=== PATIENT | female | born 1990 | race Caucasian/White ===

== ENCOUNTER 2020-05-29 20:10 | Emergency (ER) | payer OTHER, SELFPAY ==
[2020-05-29 20:16] VITALS: BP 128/81; PULSE 88; RESP 16; TEMP 36.1; O2SAT 99; BMI 29.0
--- NOTE | 2020-05-29 21:26 | ED.FEMALEGU ---
HPI - Female Genitourinary General Chief complaint: Abdominal Pain Stated complaint: pelvic pain Time Seen by Provider: 05/29/20 21:02 Source: patient Mode of arrival: ambulatory Limitations: no limitations History of Present Illness HPI Narrative: This is a 29-year-old female who reports 20 days of lower pelvic discomfort that is not associated with fevers, chills, nausea, vomiting, diarrhea/constipation, or urinary pain/burning/frequency and she denies any alleviating or exacerbating symptoms. She states that she called [facility] this afternoon and was told to go to the emergency room to get an ultrasound . When asked about her LMP patient states that she has not had a period in 88 days and that this was further worked up between her primary care provider and global sales manager, whom she states the latter had no further recommendations or anything to say when the attempt at what sounds like a test for withdrawal bleeding was conducted. Related Data Allergies Allergy/AdvReac Type Severity Reaction Status Date / Time No Known Allergies Allergy Verified 05/29/20 21:10 [No Known Allergies*] Review of Systems Review of Systems: Pertinent positives and negatives as stated in HPI 10 point review of systems is otherwise negative. PMFSH Past Medical History Source: nursing notes reviewed Medical History No known health problems Social History Social History Smoking Status: Never smoker Use of substances other than those prescribed or required for medical reasons: No Advance Directives: No Advance Directives Information Provided: Yes Physical Exam Vital Signs: Vital Signs: Last Vital Signs Temp 99.0 F 05/29/20 21:51 Pulse 75 05/29/20 21:51 Resp 16 05/29/20 21:51 BP 119/75 05/29/20 21:51 Pulse Ox 97 05/29/20 21:51 Body Mass Index 29.0 VITAL SIGNS: Reviewed. GENERAL: Well developed, well nourished, in no acute distress, patient appears comfortable. HEAD: Normocephalic/atraumatic, EYES: PERRLA, EOMI intact without pain, no nystagmus/pallor/icterus noted EARS: Ext canals without abnormality, TMs non-bulging and non-erythematous NOSE: Nares patent bilateral OROPHARYNX: no oral lesions noted, posterior pharynx clear and non-erythematous without noted tonsillar enlargement/erythema/exudates NECK: Supple, no adenopathy LUNGS: Normal breath sounds. No adventitious sounds or accessory muscle use. SpO2<99> CARDIOVASCULAR: Regular rate and rhythm without noted murmurs, no JVD or lower extremity edema. ABDOMEN: Soft, non-tender, non-distended with bowel sounds. No rigidity. No guarding. No palpable masses or hernias noted MUSCULOSKELETAL: No tenderness, deformities, or effusions noted on gross inspection. EXTREMITIES: No cyanosis, clubbing or edema. SKIN: Inspection of the skin reveals no rashes, ulcerations, jaundice, pallor, or petechiae. NEUROLOGIC: Alert and oriented x 4. Strength and sensation to light touch were grossly intact x 4. Course Course Course Narrative: This is a 29-year-old female with history and clinical presentation most suggestive of a chronic condition, however will rule out UTI, renal colic, ovarian torsion (although this is unlikely for 20 days), no evidence to support possible STI. On review of all investigations urinary findings in urine test is negative. The pelvic ultrasound was suggestive of PCOS but no evidence of ovarian torsion. All results and findings were discussed with patient at bedside and she was instructed to follow-up with her primary care provider. MDM - Female Genitourinary Lab Data Result diagrams: 05/29/20 21:49 05/29/20 21:49 Labs: Lab Results 05/29/20 05/29/20 05/29/20 Range/Units 21:18 21:49 21:49 WBC 10.6 (4.8-10.8) X10*3/uL RBC 4.42 (4.20-5.50) X10*6/uL Hgb 12.8 (12.0-16.0) g/dl Hct 38.5 (37-47) % MCV 87.1 (80-98) fL MCH 29.0 (27.0-33.0) pg MCHC 33.2 (31.0-35.0) g/dl RDW 13.0 (11.0-16.0) % Plt Count 368 (160-400) X10*3/uL MPV 9.7 (9.4-12.3) fL Immature Gran % (Auto) 0.4 (0.0-0.4) % Neut % (Auto) 62.3 (45-73) % Lymph % (Auto) 28.3 (20-40) % Metcalfe % (Auto) 6.9 (2-11) % Eos % (Auto) 1.6 (0-4) % Baso % (Auto) 0.5 (0-2) % Lymph # (Auto) 3.0 (1.2-4.9) X10*3/uL Metcalfe # (Auto) 0.7 (0.1-1.2) X10*3/uL Eos # (Auto) 0.2 (0.0-0.4) X10*3/uL Baso # (Auto) 0.1 (0.0-0.2) X10*3/uL Abs Immat Gran (auto) 0.04 H (0.00-0.03) X10*3/uL Absolute Neuts (auto) 6.6 (2.0-8.3) X10*3/uL Absolute Nucleated RBC 0.000 (0.0-0.012) X10*3/uL Nucleated RBC % (auto) 0.0 (0.0-0.2) /100WBC Sodium 139 (135-145) mmol/L Potassium 4.0 (3.3-5.1) mmol/l Chloride 101 (96-108) mmol/L Carbon Dioxide 27 (22-29) mmol/L Anion Gap 15 (12-20) BUN 10 (9-16) mg/dL Creatinine 0.68 (0.5-1.4) mg/dL Estim Creat Clear Calc 129.1 Estimated GFR > 60 Random Glucose 92 (60-115) mg/dL Calcium 8.9 (8.4-10.2) mg/dL Total Bilirubin 0.7 (0.0-1.0) mg/dL AST 18 (5-31) U/L ALT 18 (0-31) U/L Alkaline Phosphatase 56 (39-117) U/L Total Protein 7.4 (6.5-8.0) g/dL Albumin 4.6 (3.5-5.0) g/dL Urine Color YELLOW Urine Appearance CLEAR Urine pH 5.5 (5.0-8.0) Ur Specific [place] 1.015 (1.005-1.025) Urine Protein NEG (NEG-TRACE) MG/DL Urine Glucose (UA) NEG (NEG) MG/DL Urine Ketones NEG (NEG) MG/DL Urine Blood 2+ H (NEG) Urine Nitrite NEG (NEG) Ur Leukocyte Esterase NEG (NEG) Urine RBC 0-2 (0) /HPF Urine WBC 0-2 (0-4) /HPF Ur Squamous Epith Cells 1+ /LPF Urine Bacteria TRACE /LPF Urine Yeast TRACE /HPF Urine Test NEGATIVE (NEGATIVE) Discharge Plan Discharge Clinical Impression: Pelvic pain Patient Disposition: Home, Self-Care Instructions: Pelvic Pain in Women (ED) Additional Instructions: 1. Tylenol 1000 mg, por v?a oral, cada 6 horas seg?n sea necesario para controlar el dolor. No exceda los 4000 mg en 24 horas. 2. Ibuprofeno 400 mg, por v?a oral con leche o alimentos, cada 6 horas seg?n sea necesario para controlar el dolor. 3. Los hallazgos de la ecograf?a sugieren andrade posible afecci?n llamada SOP (s?ndrome de ovario poliqu?stico), lazaro prseley proveedor de atenci?n primaria y / o presley ginec?logo deben realizar andrade evaluaci?n ambulatoria adicional. El paciente y / o la quan reconocen que comprenden los resultados (seg?n corresponda), el diagn?stico, el plan de tratamiento, la necesidad de seguimiento y los s?ntomas que deber?an impulsar el regreso a la aditi de emergencias. Referrals: [place] [Primary Care Provider] - 2 days (Re-evaluation and outpatient management for pelvic discomfort and possible PCOS) Print Language: Indonesian
[2020-05-29 21:28] LABS: Glucose Urine UA NEG (NEG); Leukocyte Esterase Urine NEG (NEG); Nitrite Urine NEG (NEG); PH 5.5 (5.0-8.0); Specific Gravity - Urine 1.015 (1.005-1.025); Urine Blood 2+ (NEG); Urine Ketones NEG (NEG); Urine Protein NEG (NEG-TRACE)
[2020-05-29 21:31] LABS: Appearance Urine CLEAR; Color Urine YELLOW
[2020-05-29 21:40] LABS: UPreg QC Valid YES; Urine Pregnancy NEGATIVE (NEGATIVE)
[2020-05-29 21:44] LABS: Bacteria Urine TRACE /LPF; RBC Urine 0-2 /HPF (0); Squamous Epithelial Cell Urine 1+ /LPF; WBC Urine 0-2 /HPF (0-4)
--- NOTE | 2020-05-29 21:47 | US_ITS ---
EXAMINATION: US PELVIS COMPLETE US PELVIS TRANSVAGINAL US PELVIS OVARIAN DOPPLER CLINICAL INFORMATION: Pelvic pain. COMPARISON: Pelvic ultrasound 12/18/2017. TECHNIQUE: Both transabdominal and endovaginal scanning was performed. Color flow Doppler imaging was also utilized. FINDINGS: An anteverted uterus is present measuring 9.0 x 5.4 x 6.1 cm for a volume of 168 mL. No uterine masses are seen. Endometrium appears homogeneous and normal at 6 mm. The cervix appears unremarkable and contains multiple nabothian cysts. Both ovaries have multiple peripheral subcortical cysts with appearances suggesting polycystic ovarian syndrome. The right ovary measures 5.1 x 2.8 x 3.0 cm for a volume of 22.4 mL and the left ovary measures 4.1 x 2.6 x 2.3 cm for a volume of 12.8 mL. The right ovary contains a few punctate subcortical calcifications. Normal venous and arterial Doppler flow is present in both ovaries. A small amount of free fluid is present in the pelvis. US/US pelvic ovarian doppler IMPRESSION: Mildly enlarged ovaries with multiple subcortical peripheral cysts suggestive of polycystic ovarian syndrome.
--- NOTE | 2020-05-29 21:47 | US_ITS ---
EXAMINATION: US PELVIS COMPLETE US PELVIS TRANSVAGINAL US PELVIS OVARIAN DOPPLER CLINICAL INFORMATION: Pelvic pain. COMPARISON: Pelvic ultrasound 12/18/2017. TECHNIQUE: Both transabdominal and endovaginal scanning was performed. Color flow Doppler imaging was also utilized. FINDINGS: An anteverted uterus is present measuring 9.0 x 5.4 x 6.1 cm for a volume of 168 mL. No uterine masses are seen. Endometrium appears homogeneous and normal at 6 mm. The cervix appears unremarkable and contains multiple nabothian cysts. Both ovaries have multiple peripheral subcortical cysts with appearances suggesting polycystic ovarian syndrome. The right ovary measures 5.1 x 2.8 x 3.0 cm for a volume of 22.4 mL and the left ovary measures 4.1 x 2.6 x 2.3 cm for a volume of 12.8 mL. The right ovary contains a few punctate subcortical calcifications. Normal venous and arterial Doppler flow is present in both ovaries. A small amount of free fluid is present in the pelvis. US/US pelvic complete IMPRESSION: Mildly enlarged ovaries with multiple subcortical peripheral cysts suggestive of polycystic ovarian syndrome.
--- NOTE | 2020-05-29 21:47 | US_ITS ---
EXAMINATION: US PELVIS COMPLETE US PELVIS TRANSVAGINAL US PELVIS OVARIAN DOPPLER CLINICAL INFORMATION: Pelvic pain. COMPARISON: Pelvic ultrasound 12/18/2017. TECHNIQUE: Both transabdominal and endovaginal scanning was performed. Color flow Doppler imaging was also utilized. FINDINGS: An anteverted uterus is present measuring 9.0 x 5.4 x 6.1 cm for a volume of 168 mL. No uterine masses are seen. Endometrium appears homogeneous and normal at 6 mm. The cervix appears unremarkable and contains multiple nabothian cysts. Both ovaries have multiple peripheral subcortical cysts with appearances suggesting polycystic ovarian syndrome. The right ovary measures 5.1 x 2.8 x 3.0 cm for a volume of 22.4 mL and the left ovary measures 4.1 x 2.6 x 2.3 cm for a volume of 12.8 mL. The right ovary contains a few punctate subcortical calcifications. Normal venous and arterial Doppler flow is present in both ovaries. A small amount of free fluid is present in the pelvis. US/US transvaginal IMPRESSION: Mildly enlarged ovaries with multiple subcortical peripheral cysts suggestive of polycystic ovarian syndrome.
[2020-05-29 21:51] VITALS: BP 119/75; PULSE 75; RESP 16; TEMP 37.2; O2SAT 97
[2020-05-29 22:01] LABS: MANUAL DIFF FLAG NO
[2020-05-29 22:03] LABS: Basophils Absolute Auto 0.1 X10*3/uL (0.0-0.2); Basophils Percent Auto 0.5 % (0-2); Eosinophils Absolute Auto 0.2 X10*3/uL (0.0-0.4); Eosinophils Percent Auto 1.6 % (0-4); Hematocrit 38.5 % (37-47); Hemoglobin 12.8 g/dl (12.0-16.0); Imm Gran Abs Auto 0.04 X10*3/uL (0.00-0.03); Imm Gran Pct Auto 0.4 % (0.0-0.4); Lymphocytes Percent Auto 28.3 % (20-40); Mean Corpuscular HGB Conc 33.2 g/dl (31.0-35.0); Mean Corpuscular Volume 87.1 fL (80-98); Mean Platelet Volume 9.7 fL (9.4-12.3); Monocytes Absolute Auto 0.7 X10*3/uL (0.1-1.2); Monocytes Percent Auto 6.9 % (2-11); Neutrophils Absolute Auto 6.6 X10*3/uL (2.0-8.3); Neutrophils Percent Auto 62.3 % (45-73); Platelet Count 368 X10*3/uL (160-400); Red Blood Count 4.42 X10*6/uL (4.20-5.50); White Blood Count 10.6 X10*3/uL (4.8-10.8)
[2020-05-29] MEDS: Ketorolac Tromethamine 15 MG/ML VIAL IM (22:12)
[2020-05-29] MEDS: Acetaminophen 325 MG TABLET 975 MG PO (22:13)
[2020-05-29 22:25] LABS: Alanine Aminotransferase 18 U/L (0-31); Albumin Level 4.6 g/dL (3.5-5.0); Alkaline Phosphatase 56 U/L (39-117); Anion Gap 15 (12-20); Aspartate Amino Transferase 18 U/L (5-31); Bilirubin Total 0.7 mg/dL (0.0-1.0); Blood Urea Nitrogen 10 mg/dL (9-16); Calcium 8.9 mg/dL (8.4-10.2); Carbon Dioxide 27 mmol/L (22-29); Chloride 101 mmol/L (96-108); Creatinine Clr Calc Pharmacy 129.1; Estimated Glomerular Filt Rate > 60; Glucose Random 92 mg/dL (60-115); Sodium 139 mmol/L (135-145); Total Protein 7.4 g/dL (6.5-8.0)
== END 2020-05-29 23:42 | disposition home or self-care (01) ==
PROVIDERS: Emergency Provider Student in an Organized Health Care Education/Training Program
DX: R10.2 Pelvic and perineal pain (principal)
CPT/HCPCS: 36415; 76830; 76856; 80053; 81001; 81025; 85025; 93975; 96372; 99284; J1885

== ENCOUNTER → 2020-06-28 10:31 | Outpatient (BNVA) | payer OTHER, SELFPAY | PROVIDERS: PCP Internal Medicine; Visit Provider Obstetrics & Gynecology | DX: N91.2 Amenorrhea, unspecified (principal) | CPT/HCPCS: 99202 ==

== ENCOUNTER 2020-08-25 11:43 | Outpatient (REF) | payer OTHER, SELFPAY ==
--- NOTE | ~2020-08-25 | MM_ITS ---
EXAMINATION: MM DIAGNOSTIC DIGITAL BREAST TOMOSYNTHESIS, BILATERAL US TARGETED RIGHT BREAST CLINICAL INFORMATION: Right breast mass 3:00 retroareolar region. The lifetime risk of breast cancer based on the Tyrer-Cuzick Model is 9.2%. COMPARISON: 08/25/2017 TECHNIQUE: Digital breast tomosynthesis is performed in both the craniocaudal and mediolateral oblique views along with computer-aided detection (CAD). Synthesized 2D images are generated from the tomosynthesis. FINDINGS: There are scattered areas of fibroglandular density (ACR BI-RADS breast composition Category b). A skin lesion is seen at the 6 o'clock position of the left breast. No suspicious abnormal dominant mass or suspicious grouping of microcalcifications identified. Targeted right breast ultrasound to palpable abnormality demonstrates at the 3 o'clock position, retroareolar location, a circumscribed hypoechoic lesion measuring approximately 5 x 4 mm in size with a single vessel within it. Lesion is wider than it is tall and is intradermal in location. This is similar in appearance to previously noted lesion on study of 08/25/2017. No definite pore to the skin is seen. Results are discussed with the patient at time of visit. MM/MM tomosynthesis diagnostic BI IMPRESSION: No specific mammographic or ultrasound findings to suggest malignancy. Stable finding with intradermal lesion of the right breast suggestive of sebaceous cyst. ASSESSMENT: BI-RADS 2: Benign RECOMMENDATION: Clinical follow-up.
--- NOTE | ~2020-08-25 | US_ITS ---
EXAMINATION: US DIAGNOSTIC ULTRASOUND BREAST, RIGHT CLINICAL INFORMATION: Subareolar palpable abnormality. COMPARISON: Ultrasound of August 25, 2017. TECHNIQUE: Ultrasound of the breast is performed with real-time jauregui scale imaging and color Doppler. FINDINGS: Targeted right breast ultrasound to palpable abnormality demonstrates at the 3:00 position, retroareolar location, a circumscribed hypoechoic lesion measuring approximately 5 x 4 mm in size with a single vessel within it. Lesion is wider than it is tall and is intradermal in location. This is similar in appearance to previously noted lesion on study of August 25, 2017. No definite pore to the skin is seen. Results are discussed with the patient at time of visit. US/US breast RT limited IMPRESSION: No specific mammographic or ultrasound findings to suggest malignancy. Stable finding with intradermal lesion of the right breast suggestive of sebaceous cyst. ASSESSMENT: BI-RADS 2: Benign RECOMMENDATION: Clinical follow-up
== END 2020-08-25 11:44 | disposition home or self-care (01) ==
LOC: HO.MAMMO 11:43
PROVIDERS: Visit Provider Nurse Practitioner Family
DX: N63.10 Unspecified lump in the right breast, unspecified quadrant (principal)
CPT/HCPCS: 76642; 77062; 77066

== ENCOUNTER 2020-10-19 13:57 | Outpatient (REF) | payer OTHER, SELFPAY | END 2020-10-19 13:58 | disposition home or self-care (01) | LOC: HO.LNP 13:57 | PROVIDERS: PCP Nurse Practitioner Family; Visit Provider Surgery | DX: L72.0 Epidermal cyst (principal) | CPT/HCPCS: 11401; 88304; 88305; 88341; 88342; 99202 ==

== ENCOUNTER → 2020-11-02 09:15 | Outpatient (BNVA) | payer OTHER, SELFPAY | PROVIDERS: PCP Nurse Practitioner Family; Visit Provider Surgery | DX: L72.0 Epidermal cyst (principal) | CPT/HCPCS: 99212 ==

== ENCOUNTER 2021-03-02 10:56 | Outpatient (REF) | payer BC, MEDICAID, SELFPAY ==
[2021-03-02 11:46] LABS: COVID-19 Test Positive (Negative)
== END 2021-03-02 10:57 | disposition home or self-care (01) ==
LOC: HO.LAB 10:56
PROVIDERS: Visit Provider Internal Medicine
DX: Z20.822 Contact with and (suspected) exposure to COVID-19 (principal)
CPT/HCPCS: 36415; 87635; C9803